=== PATIENT | male | born 1965 | race Caucasian/White ===

== ENCOUNTER 2017-05-12 15:47 | Inpatient (IN) ==
--- NOTE | 2017-05-12 15:56 | Emergency Department Note ---
Disposition Clinical Impression: Cellulitis Disposition: Admitted As Inpatient Condition: Good General Adult HPI - General Chief complaint: ED Extremity Problem,Nontraumatic Stated complaint: RUE cellulitis Time Seen by Provider: 05/12/17 15:49 - Related Data Home Medications Medication Instructions Recorded Confirmed Duloxetine [Cymbalta] 30 mg PO DAILY 06/20/15 05/12/17 Metoprolol [Lopressor] 50 mg PO BID 07/14/15 05/12/17 Atorvastatin [Lipitor] 10 mg PO HS 05/12/17 05/12/17 Lisinopril [Zestril] 40 mg PO DAILY 05/12/17 05/12/17 Mirtazapine [Remeron] 30 mg PO HS 05/12/17 05/12/17 Omeprazole [PriLOSEC] 20 mg PO DAILY PRN 05/12/17 05/12/17 Oxycodone HCl/Acetaminophen 1 each PO Q8H PRN 05/12/17 05/12/17 [Percocet 7.5-325 mg Tablet] Potassium Chloride [Klor-Con 10 meq PO DAILY 05/12/17 05/12/17 Sprinkle] Pregabalin [Lyrica] 200 mg PO TID 05/12/17 05/12/17 Allergies Allergy/AdvReac Type Severity Reaction Status Date / Time No Known Allergies Allergy Unverified 04/08/15 13:07 Past Medical History - Past Medical History Medical history: Reports: hypertension, other Surgical history: Reports: orthopedic, other (Right below-knee amputation) Psychiatric history: Reports: anxiety, depression - Social History Smoking Status: Current every day smoker Smokeless Tobacco Status: No Alcohol use: Reports: none Drug use: Reports: none Course Vital Signs Temperature 97.9 F 05/12/17 15:52 Pulse Rate 72 05/12/17 15:52 Respiratory Rate 16 05/12/17 15:52 Blood Pressure 167/112 05/12/17 15:52 O2 Sat by Pulse Oximetry 99 05/12/17 15:52 Temperature 97.8 F 05/13/17 11:35 Pulse Rate 88 05/13/17 11:35 Respiratory Rate 16 05/13/17 11:40 Blood Pressure 106/73 05/13/17 11:35 O2 Sat by Pulse Oximetry 95 05/13/17 11:40 Oxygen Delivery Oxygen Delivery Room Air Medical Decision Making - Lab Data Result diagrams: 05/13/17 05:00 05/13/17 05:00 Lab Results 05/12/17 05/12/17 Range/Units 16:21 16:21 WBC 10.1 (4.3-11.1) K/mcL RBC 5.12 (4.19-5.50) M/mcL Hgb 15.0 (12.9-16.9) g/dL Hct 44.9 (37.5-50.1) % MCV 87.7 (83.0-100.0) fL MCH 29.3 (28.0-33.3) pg MCHC 33.4 (31.6-35.5) g/dL RDW 15.4 H (11.5-14.5) % Plt Count 355 (140-400) K/mcL MPV 10.3 (9.4-12.4) fL Immature Gran % 0.6 (0-4) % Seg Neutrophils % 67.0 % Lymphocytes % 23.4 % Monocytes % 5.2 % Eosinophils % 3.6 % Basophils % 0.2 % Neutrophils # 6.8 (1.6-8.9) K/mcL Lymphocytes # 2.4 (0.6-4.6) K/mcL Monocytes # 0.5 (0.0-1.3) K/mcL Eosinophils # 0.4 (0.0-0.6) K/mcL Basophils # 0.0 (0.0-0.2) K/mcL Sodium 138 (136-145) mEq/L Potassium 4.1 (3.5-4.5) mEq/L Chloride 107 (98-109) mEq/L Carbon Dioxide 23 (19-29) mEq/L BUN 7 L (8-26) mg/dL Creatinine 0.89 (0.72-1.25) mg/dL Est GFR ( Amer) > 60 (> 60) Est GFR (Non-Af Amer) > 60 (> 60) BUN/Creatinine Ratio 8 (6-26) Glucose 89 (70-99) mg/dL Calculated Osmolality 283 (280-300) Calcium 8.8 (8.6-10.8) mg/dL Attestation Statement - Attestation Attestation: I examined this patient and my medical decision-making was reviewed with the Resident Physician. I agree with the documented findings, disposition and treatment plan as described except to the extent set forth below. [id number] time provided Patient arrives as a transfer from the [facility] due to right upper extremity swelling. He was being treated for cellulitis with vancomycin pre- transfer. His right upper extremity is swollen with some serous drainage but it is not hot, tender or crepitant.
--- NOTE | 2017-05-12 16:04 | Emergency Department Note ---
Disposition Clinical Impression: Cellulitis Qualifiers: Site of cellulitis: extremity Site of cellulitis of extremity: upper extremity Laterality: right Qualified Code(s): L03.113 - Cellulitis of right upper limb Disposition: Admitted As Inpatient Condition: Good General Adult HPI - General Chief complaint: ED Extremity Problem,Nontraumatic Stated complaint: RUE cellulitis Time Seen by Provider: 05/12/17 15:49 Source: patient Limitations: no limitations Nursing Notes Reviewed: Yes Vital Signs Reviewed: Yes - History of Present Illness HPI Narrative: 51-year-old male presenting to the emergency department from the OR urgent care for right upper extremity cellulitis. He states last night he started having right upper extremity swelling, redness, warmth. He states it is now from his hand on the way up to his right shoulder. Patient has a significant medical history previous staph infections. He states he was electrocuted in the past and needed to have a right lower extremity amputation. When this occurred he had a staph infection and needed to be revised. He has multiple skin infections in the past. He denies fevers at home. He denies nausea and vomiting. Patient states he otherwise feels fine at this time. He was concerned due to long-standing history of staph infections. Vancomycin was started at the outpatient urgent care. Patient denies IV drug use. Pain Scale: 4 - Related Data Home Medications Medication Instructions Recorded Confirmed Duloxetine [Cymbalta] 30 mg PO DAILY 06/20/15 05/12/17 Metoprolol [Lopressor] 50 mg PO BID 07/14/15 05/12/17 Atorvastatin [Lipitor] 10 mg PO HS 05/12/17 05/12/17 Lisinopril [Zestril] 40 mg PO DAILY 05/12/17 05/12/17 Mirtazapine [Remeron] 30 mg PO HS 05/12/17 05/12/17 Omeprazole [PriLOSEC] 20 mg PO DAILY PRN 05/12/17 05/12/17 Oxycodone HCl/Acetaminophen 1 each PO Q8H PRN 05/12/17 05/12/17 [Percocet 7.5-325 mg Tablet] Potassium Chloride [Klor-Con 10 meq PO DAILY 05/12/17 05/12/17 Sprinkle] Pregabalin [Lyrica] 200 mg PO TID 05/12/17 05/12/17 Allergies Allergy/AdvReac Type Severity Reaction Status Date / Time No Known Allergies Allergy Unverified 04/08/15 13:07 All systems ED: reviewed and negative except as stated. Constitutional: Denies: fever, chills Eyes: Reports: as per HPI ENT ED: Reports: as per HPI Cardiovascular: Denies: chest pain, palpitations Respiratory: Denies: cough, dyspnea, wheezes Gastrointestinal: Denies: abdominal pain, nausea, vomiting Genitourinary: Reports: as per HPI Musculoskeletal: Reports: as per HPI Integumentary: Reports: other (Redness and swelling to the right upper extremity ) Neurological: Reports: as per HPI Psychiatric: Reports: as per HPI Endocrine: Reports: as per HPI Hematological/Lymphatic: Reports: as per HPI Allergic/Immunologic: Reports: as per HPI Past Medical History - Past Medical History Attestation: Yes The following information was validated with the patient. Medical history: Reports: hypertension, other Surgical history: Reports: orthopedic, other (Right below-knee amputation) Psychiatric history: Reports: anxiety, depression - Social History Smoking Status: Current every day smoker Smokeless Tobacco Status: No Alcohol use: Reports: none Drug use: Reports: none Physical Exam - General Limitations: no limitations General appearance: alert, in no apparent distress - Head Head exam: atraumatic, normocephalic, normal inspection - Eye Eye exam: Present: normal appearance. Absent: scleral icterus, conjunctival injection - Chest Chest inspection: Present: normal inspection, symmetric chest wall rise. Absent : tenderness, rash - Respiratory Respiratory exam: Present: normal lung sounds bilaterally. Absent: respiratory distress, wheezes - Cardiovascular Cardiovascular exam: Present: regular rate, normal rhythm, normal heart sounds - Abdominal Exam Abdominal exam: Present: soft, Non-Tender. Absent: distention, guarding, rebound - Extremities Exam Extremities exam: Present: other (Right upper extremity swelling and redness noted. Some warmth noted on exam. Muscle strength 5 out of 5 bilateral upper extremities. Sensation intact bilateral upper extremities. Distal pulses 2+ bilateral upper extremities. No crepitus or dislocation noted on exam.) - Neurological Exam Neurological exam: Present: alert, oriented X3 - Psychiatric Psychiatric exam: Present: normal affect, normal mood - Skin Skin exam: Present: warm, intact Course Course Narrative: 51-year-old male presenting to the emergency department from the OR with chief complaint of right upper extremity cellulitis. Patient is restarted on IV vancomycin. Significant medical history from MRSA infections. No concern for systemic illness at this time due to patient being afebrile and nontoxic heart. We will obtain basic lab work and a CT of the right upper extremity. Disposition will be admission. Patient's alert and oriented 3 in the room with stable vital signs at this time. - Reevaluation(s) Reevaluation #1: Patient accepted by the hospitalist at this time. He is alert and oriented x3 in the room with stable vital signs Vital Signs Temperature 97.9 F 05/12/17 15:52 Pulse Rate 72 05/12/17 15:52 Respiratory Rate 16 05/12/17 15:52 Blood Pressure 167/112 05/12/17 15:52 O2 Sat by Pulse Oximetry 99 05/12/17 15:52 Temperature 97.6 F 05/13/17 07:30 Pulse Rate 87 05/13/17 07:30 Respiratory Rate 16 05/13/17 07:30 Blood Pressure 99/64 05/13/17 07:30 O2 Sat by Pulse Oximetry 91 05/13/17 07:30 Oxygen Delivery Oxygen Delivery Room Air Medical Decision Making - Lab Data Result diagrams: 05/13/17 05:00 05/13/17 05:00 Lab Results 05/12/17 05/12/17 Range/Units 16:21 16:21 WBC 10.1 (4.3-11.1) K/mcL RBC 5.12 (4.19-5.50) M/mcL Hgb 15.0 (12.9-16.9) g/dL Hct 44.9 (37.5-50.1) % MCV 87.7 (83.0-100.0) fL MCH 29.3 (28.0-33.3) pg MCHC 33.4 (31.6-35.5) g/dL RDW 15.4 H (11.5-14.5) % Plt Count 355 (140-400) K/mcL MPV 10.3 (9.4-12.4) fL Immature Gran % 0.6 (0-4) % Seg Neutrophils % 67.0 % Lymphocytes % 23.4 % Monocytes % 5.2 % Eosinophils % 3.6 % Basophils % 0.2 % Neutrophils # 6.8 (1.6-8.9) K/mcL Lymphocytes # 2.4 (0.6-4.6) K/mcL Monocytes # 0.5 (0.0-1.3) K/mcL Eosinophils # 0.4 (0.0-0.6) K/mcL Basophils # 0.0 (0.0-0.2) K/mcL Sodium 138 (136-145) mEq/L Potassium 4.1 (3.5-4.5) mEq/L Chloride 107 (98-109) mEq/L Carbon Dioxide 23 (19-29) mEq/L BUN 7 L (8-26) mg/dL Creatinine 0.89 (0.72-1.25) mg/dL Est GFR ( Amer) > 60 (> 60) Est GFR (Non-Af Amer) > 60 (> 60) BUN/Creatinine Ratio 8 (6-26) Glucose 89 (70-99) mg/dL Calculated Osmolality 283 (280-300) Calcium 8.8 (8.6-10.8) mg/dL
[2017-05-12 16:37] LABS: Basophils % 0.2 %; Eosinophils # 0.4 K/mcL (0.0-0.6); Eosinophils % 3.6 %; Hematocrit 44.9 % (37.5-50.1); Immature Granulocytes % 0.6 % (0-4); Lymphocytes # 2.4 K/mcL (0.6-4.6); Lymphocytes % 23.4 %; Mean Corpuscular HGB Conc 33.4 g/dL (31.6-35.5); Mean Corpuscular Hemoglobin 29.3 pg (28.0-33.3); Mean Corpuscular Volume 87.7 fL (83.0-100.0); Mean Platelet Volume 10.3 fL (9.4-12.4); Monocytes # 0.5 K/mcL (0.0-1.3); Monocytes % 5.2 %; Neutrophils # 6.8 K/mcL (1.6-8.9); Platelet Count 355 K/mcL (140-400); Red Blood Count 5.12 M/mcL (4.19-5.50); Red Cell Distribution Width 15.4 % (11.5-14.5)
[2017-05-12 16:49] LABS: BUN/Creatinine Ratio 8 (6-26); Blood Urea Nitrogen 7 mg/dL (8-26); Calcium 8.8 mg/dL (8.6-10.8); Carbon Dioxide 23 mEq/L (19-29); Chloride 107 mEq/L (98-109); Glucose 89 mg/dL (70-99); Osmolality,Calculated 283 (280-300); Potassium 4.1 mEq/L (3.5-4.5); Sodium 138 mEq/L (136-145); eGFR For African Americans > 60 (> 60); eGFR For Non-African Americans > 60 (> 60)
[2017-05-12] MEDS ORDERED: Ketorolac 15 MG/ML VIAL IVP ONE (19:01)
[2017-05-12] MEDS ORDERED: Naloxone 0.4 MG/ML INJ IVP PRN (21:22)
[2017-05-12] MEDS ORDERED: Ondansetron 4 MG/2 ML VIAL IVP PRN (21:22)
[2017-05-12] MEDS ORDERED: Acetaminophen 325 MG TABLET PO PRN (21:22)
--- NOTE | 2017-05-12 21:31 | Internal Med History&Physical ---
<Jodie Parr - Last Filed: 05/12/17 21:59> Date of Encounter: 05/12/17 Time of Encounter: 21:29 Assessment and Plan (1) Cellulitis Current visit: Yes Status: Acute 1 patient R arm red and swollen tender warm to touch. His history of MRSA. Blood cultures have been obtained we will obtain wound cultures patient started on vancomycin we will add Zosyn We will obtain venous Doppler to rule out DVT Elevate extremity Qualifiers: Site of cellulitis: extremity Site of cellulitis of extremity: upper extremity Laterality: right Qualified Code(s): L03.113 - Cellulitis of right upper limb (2) Hypertension Current visit: No Status: Chronic Presently controlled with continuous home medications Qualifiers: Hypertension type: essential hypertension Qualified Code(s): I10 - Essential (primary) hypertension (3) GERD (gastroesophageal reflux disease) Current visit: No Status: Chronic Continue with Prilosec Qualifiers: Esophagitis presence: esophagitis presence not specified Qualified Code(s) : K21.9 - Gastro-esophageal reflux disease without esophagitis (4) DVT prophylaxis Current visit: Yes Status: Acute Lovenox [facility] Internal Medicine - H&P: HPI Chief complaint: arm swelling Admitted From: Emergency Dept Plans for Post Hospital Care: Home History of present illness: Mr. Naqvi is a 51 year old male past medical history of hypertension COPD GERD hyperlipidemia BKA 2011 right leg injury from electrocution. Patient has been experiencing right upper extremity swelling redness and warmth which originates in his shoulder and extends down to his hand. The arm has become more swollen and red tender over the past 24 hours. Earlier today he developed blisters and his right antecubital area that are now weeping clear fluid. He states this happened the last time he had an MRSA infection. Blood cultures have been obtained and patient was started on vancomycin. He has a past history of MRSA infections He presented to the emergency department at the [place] within transferred into our ER for further evaluation. He has been admitted for further workup and evaluation. Presently he is hemodynamically stable I reviewed this case with Dr Vazquez Past Med Surg Social Fam HX - Past Medical History Medical history: hypertension, other Psychiatric history: anxiety, depression - Past Surgical History Surgical History: orthopedic, other (Right below-knee amputation) - Social History Smoking Status: Current every day smoker Smokeless Tobacco Status: No Alcohol use: none Drug use: none - Family History Father Hx Family Cardiac Disorders: Yes (HTN) Mother Living Status: Hx Family Cardiac Disorders: Yes (heart disease ) Hx Family Endocrine Disorder: Yes (DM) Internal Medicine - H&P: Meds Duloxetine [Cymbalta] 30 mg PO DAILY 06/20/15 [History] Metoprolol [Lopressor] 50 mg PO BID 07/14/15 [History] Atorvastatin [Lipitor] 10 mg PO HS 05/12/17 [History] Lisinopril [Zestril] 40 mg PO DAILY 05/12/17 [History] Mirtazapine [Remeron] 30 mg PO HS 05/12/17 [History] Omeprazole [PriLOSEC] 20 mg PO DAILY PRN 05/12/17 [History] Oxycodone HCl/Acetaminophen [Percocet 7.5-325 mg Tablet] 1 each PO Q8H PRN 05/12 [History] Potassium Chloride [Klor-Con Sprinkle] 10 meq PO DAILY 05/12/17 [History] Pregabalin [Lyrica] 200 mg PO TID 05/12/17 [History] 3 Allergy/AdvReac Type Severity Reaction Status Date / Time No Known Allergies Allergy Unverified 04/08/15 13:07 All Systems PM: A 10-system review of systems was performed and is negative for pertinent findings except as documented above in the HPI. - Constitutional Constitutional: no chills, no fever(s), no night sweats - EENT Eyes: no change in vision, no discharge, no pain, no photophobia Nose, mouth and throat: no dysphagia, no nasal discharge, no neck pain, no sore throat - Cardiovascular Cardiovascular ROS IM: no chest pain, no diaphoresis, no dyspnea, no lightheadedness, no palpitations, no syncope - Respiratory Respiratory: no cough, no dyspnea, no wheezing, no excessive phlegm production - Gastrointestinal Gastrointestinal: no abdominal pain, no diarrhea, no hematemesis, no hematochezia, no melena, no nausea, no vomiting - Musculoskeletal Musculoskeletal ROS IM: no numbness, no tingling - Integumentary Integumentary IM: erythema, new lesions, no unusual bruising - Neurological Neurological ROS: no confusion, no convulsions, no focal weakness, no numbness, no tingling, no tremor(s) - Hematologic/Lymphatic Hematologic/Lymphatic: no easy bruising - Constitutional Vitals: Temp Pulse Resp BP Pulse Ox 97.9 F 73 18 136/92 93 05/12/17 15:52 05/12/17 20:57 05/12/17 21:12 05/12/17 21:12 05/12/17 20:57 General appearance: Present: A&O X 3 - Head Head exam: Present: atraumatic, normocephalic - Eye Eye exam: Present: PERRL, conjuntiva pink, sclera anicteric Pupils: Present: PERRL - Neck Neck exam general surgery: Present: supple, trachea midline. Absent: lymphadenopathy - Respiratory Respiratory exam: Present: wheezes - Cardiovascular Cardiovascular exam: Present: RRR, +S1, +S2. Absent: diastolic murmur, gallop, rubs, systolic murmur - GI/Abdominal GI/Abdominal exam: Present: normal bowel sounds, soft, no peritoneal signs. Absent: distended, tenderness - Extremities Exam Extremities exam: Present: warm, radial pulses palpable and symmetrical. Absent : calf tenderness, cyanotic, pedal edema - Expanded Upper Extremities Exam Upper Arm exam: Present: erythema, swelling, tenderness Elbow exam: Present: erythema, swelling, tenderness Forearm wrist exam: Present: erythema, swelling, tenderness - Neurological Exam Neurological exam: Present: CN II-XII intact, oriented X3, no focal deficits. Absent: pronater drift, facial droop, speech deficit - Skin Skin exam: Present: dry, intact Internal Med - H&P Results - Labs CBC & Chem 7: 05/12/17 16:21 05/12/17 16:21 - Diagnostic Studies Other Images Additional comments: Upper Extremity CT 05/12/17 15:59 IMPRESSION: Diffuse subcutaneous soft tissue edema of the dorsum of the right upper extremity, most pronounced at the level of the elbow, consistent with a severe cellulitis in the appropriate clinical setting of infection. There is no abscess. No evidence of osteomyelitis. Emphysematous changes of the lungs, suboptimally evaluated on this nondedicated study. D/ / 05/12/2017 18:07:41 Gage Johnson MD / demarcus Interpreting Provider: Gage Alex, Vernon Josue - Last Filed: 05/12/17 23:47> Date of Encounter: 05/12/17 Internal Medicine - H&P: HPI History of present illness: Mr. Naqvi is a 51 year old male All Systems PM: A 10-system review of systems was performed and is negative for pertinent findings except as documented above in the HPI. - Constitutional Vitals: Temp Pulse Resp BP Pulse Ox 98.4 F 82 19 137/96 94 05/12/17 22:25 05/12/17 22:25 05/12/17 22:35 05/12/17 22:25 05/12/17 22:35 Internal Med - H&P Results - Labs CBC & Chem 7: 05/12/17 16:21 05/12/17 16:21 - Attending Attestation I examined this patient and my medical decision-making was reviewed with the RESEARCH CHEMICAL ENGINEER. I agree with the documented findings, disposition and treatment plan as described except to the extent set forth below. Patient is a 51-year-old male with past medical history of hypertension, GERD, COPD and hyperlipidemia. He presents to the ED with complaints of right arm swelling. He also complains of right arm redness and warmth. States it initially started in the shoulder and extends all the way down to his arm. States this happened in the past and he had an MRSA infection. He states he has had multiple infections of his arms and legs in the past. Initial workup in the ED including CT of the upper extremity shows diffuse subcutaneous soft tissue edema of the dorsum of the right upper extremity consistent with severe cellulitis. No evidence of osteomyelitis. All other labs seem to be within normal limits. Patient will be on IV Zosyn and IV vancomycin. Ultrasound upper extremity Doppler is pending. Patient also has COPD with bilateral wheezing. He will be on DuoNeb breathing treatment. Patient has been explained about his condition and plan of care in detail. He understood and agreed. No unanswered questions. CODE STATUS full code. Heart rate 82, blood pressure 137/96, O2 sat 94% on room air. Heart S1-S2 positive. No murmurs or rubs. Lungs bilateral good air entry bilateral wheezing. Extremities extensive swelling over the right upper extremity extending from the shoulder all the way to the hand with mild tenderness. There is edema diffusely with erythema, no evidence of compartment syndrome at this time.
[2017-05-12] MEDS ORDERED: Albuterol 2.5 MG/3 ML NEBULIZER IH PRN (22:21)
[2017-05-12] MEDS: *HR* OxyCODONE/APAP 7.5/325 TABLET PO PRN (22:22)
[2017-05-12] MEDS: Ipratropium/Albuterol Neb 3 ML IH SCH (22:35)
[2017-05-12] MEDS ORDERED: Vancomycin 1,250 MG in D5% in Water 250 ML IVPB SCH (23:00)
[2017-05-12] MEDS: Nicotine 21 MG PATCH.TD24 TD SCH (23:06)
[2017-05-13] MEDS: Piperacillin/Tazobactam 3.375 GM in D5% in Water (Mini-Bag+) 100 ML IVPB SCH ×3 (00:05→15:44)
[2017-05-13] MEDS: Mirtazapine 15 MG TABLET PO SCH ×2 (03:00→20:29)
[2017-05-13] MEDS: Ipratropium/Albuterol Neb 3 ML IH SCH ×4 (04:04→23:08)
[2017-05-13 05:24] LABS: Basophils % 0.1 %; Eosinophils # 0.1 K/mcL (0.0-0.6); Eosinophils % 1.4 %; Hemoglobin 14.7 g/dL (12.9-16.9); Immature Granulocytes % 0.3 % (0-4); Lymphocytes # 2.1 K/mcL (0.6-4.6); Lymphocytes % 22.3 %; Mean Corpuscular HGB Conc 33.4 g/dL (31.6-35.5); Mean Corpuscular Hemoglobin 29.2 pg (28.0-33.3); Mean Corpuscular Volume 87.5 fL (83.0-100.0); Mean Platelet Volume 10.9 fL (9.4-12.4); Monocytes # 0.5 K/mcL (0.0-1.3); Monocytes % 4.8 %; Neutrophils # 6.6 K/mcL (1.6-8.9); Platelet Count 307 K/mcL (140-400); Red Blood Count 5.03 M/mcL (4.19-5.50); Red Cell Distribution Width 15.6 % (11.5-14.5); Segmented Neutrophils % 71.1 %
[2017-05-13 05:38] LABS: BUN/Creatinine Ratio 9 (6-26); Blood Urea Nitrogen 9 mg/dL (8-26); Calcium 8.5 mg/dL (8.6-10.8); Carbon Dioxide 22 mEq/L (19-29); Chloride 106 mEq/L (98-109); Glucose 121 mg/dL (70-99); Osmolality,Calculated 286 (280-300); Sodium 138 mEq/L (136-145); eGFR For African Americans > 60 (> 60); eGFR For Non-African Americans > 60 (> 60)
[2017-05-13 05:39] LABS: Potassium 4.4 mEq/L (3.5-4.5)
[2017-05-13] MEDS: *HR* Enoxaparin 40 MG/0.4 ML SYRINGE SQ SCH (06:42)
[2017-05-13] MEDS: Nicotine 21 MG PATCH.TD24 TD SCH (10:00)
[2017-05-13] MEDS: Lisinopril 20 MG TABLET PO SCH (10:00)
[2017-05-13] MEDS: Pregabalin 50 MG CAPSULE PO SCH ×3 (10:00→20:29)
[2017-05-13] MEDS: Vancomycin 1,000 MG in D5% in Water 250 ML IVPB SCH ×2 (11:59→22:54)
--- NOTE | 2017-05-13 19:28 | Internal Med Progress Note ---
Date of Encounter: 05/13/17 Time of Encounter: 11:00 - Assessment and plan (1) Cellulitis Current Visit: Yes Status: Acute Assessment and plan: -Cellulitis has improved on IV vancomycin/Zosyn -Continue current management Qualifiers: Site of cellulitis: extremity Site of cellulitis of extremity: upper extremity Laterality: right Qualified Code(s): L03.113 - Cellulitis of right upper limb (2) Hypertension Current Visit: No Status: Chronic Qualifiers: Hypertension type: essential hypertension Qualified Code(s): I10 - Essential (primary) hypertension - Subjective Interval history: He reports that cellulitis of right arm has improved. - Constitutional Vitals: Temp Pulse Resp BP Pulse Ox 97.8 F 88 16 106/73 95 05/13/17 11:35 05/13/17 11:35 05/13/17 11:40 05/13/17 11:35 05/13/17 11:40 General appearance: Present: A&O X 3 - Respiratory Respiratory exam: Present: CTAB. Absent: accessory muscle use, rales, rhonchi, wheezes - Cardiovascular Cardiovascular exam: Present: RRR, +S1, +S2. Absent: diastolic murmur, gallop, rubs, systolic murmur Internal Medicine: Result - Labs CBC & Chem 7: 05/13/17 05:00 05/13/17 05:00 Labs: Short CBC 05/13/17 Range/Units 05:00 WBC 9.3 (4.3-11.1) K/mcL Hgb 14.7 (12.9-16.9) g/dL Hct 44.0 (37.5-50.1) % Plt Count 307 (140-400) K/mcL Neutrophils # 6.6 (1.6-8.9) K/mcL BMP 05/13/17 05:00 Sodium 138 Potassium 4.4 Chloride 106 Carbon Dioxide 22 BUN 9 Creatinine 1.00 Glucose 121 H Calcium 8.5 L Consult Discharge Plan - Plan Referrals: Hugo Juan MD [Primary Care Provider] -
[2017-05-13] MEDS ORDERED: Vancomycin 1,000 MG in D5% in Water 250 ML IVPB SCH (22:00)
[2017-05-14] MEDS: Piperacillin/Tazobactam 3.375 GM in D5% in Water (Mini-Bag+) 100 ML IVPB SCH ×2 (00:10→08:30)
[2017-05-14] MEDS: Ipratropium/Albuterol Neb 3 ML IH SCH ×4 (05:23→22:28)
[2017-05-14] MEDS: Pregabalin 50 MG CAPSULE PO SCH ×3 (08:27→21:44)
[2017-05-14] MEDS: *HR* Enoxaparin 40 MG/0.4 ML SYRINGE SQ SCH (08:27)
[2017-05-14] MEDS: Nicotine 21 MG PATCH.TD24 TD SCH (08:28)
[2017-05-14] MEDS: Lisinopril 20 MG TABLET PO SCH (08:29)
[2017-05-14] MEDS: Vancomycin 1,000 MG in D5% in Water 250 ML IVPB SCH ×2 (10:24→23:07)
[2017-05-14] MEDS: *HR* OxyCODONE/APAP 7.5/325 TABLET PO PRN (10:25)
[2017-05-14 10:46] LABS: Basophils % 0.2 %; Eosinophils # 0.3 K/mcL (0.0-0.6); Eosinophils % 3.2 %; Hematocrit 41.8 % (37.5-50.1); Immature Granulocytes % 0.7 % (0-4); Lymphocytes % 20.2 %; Mean Corpuscular HGB Conc 33.5 g/dL (31.6-35.5); Mean Corpuscular Hemoglobin 29.7 pg (28.0-33.3); Mean Corpuscular Volume 88.6 fL (83.0-100.0); Monocytes # 0.5 K/mcL (0.0-1.3); Monocytes % 5.2 %; Neutrophils # 7.1 K/mcL (1.6-8.9); Platelet Count 304 K/mcL (140-400); Red Blood Count 4.72 M/mcL (4.19-5.50); Red Cell Distribution Width 15.8 % (11.5-14.5); Segmented Neutrophils % 70.5 %
[2017-05-14 10:56] LABS: BUN/Creatinine Ratio 13 (6-26); Blood Urea Nitrogen 12 mg/dL (8-26); Calcium 8.8 mg/dL (8.6-10.8); Carbon Dioxide 22 mEq/L (19-29); Chloride 110 mEq/L (98-109); Glucose 120 mg/dL (70-99); Osmolality,Calculated 293 (280-300); Potassium 4.7 mEq/L (3.5-4.5); Sodium 141 mEq/L (136-145); eGFR For African Americans > 60 (> 60); eGFR For Non-African Americans > 60 (> 60)
[2017-05-14] MEDS ORDERED: Aminoglycoside Consult 1 EACH MC ONE (11:49)
--- NOTE | 2017-05-14 14:13 | Internal Med Progress Note ---
Date of Encounter: 05/14/17 Time of Encounter: 13:00 - Assessment and plan (1) Cellulitis Current Visit: Yes Status: Acute Assessment and plan: -Cellulitis has improved on IV vancomycin/Zosyn -Wound cultures were negative -Will de-escalate to more additional day vancomycin and discharged on doxycycline Qualifiers: Site of cellulitis: extremity Site of cellulitis of extremity: upper extremity Laterality: right Qualified Code(s): L03.113 - Cellulitis of right upper limb (2) Hypertension Current Visit: No Status: Chronic Assessment and plan: -Controlled; continue home medications. Qualifiers: Hypertension type: essential hypertension Qualified Code(s): I10 - Essential (primary) hypertension (3) Hyperlipemia Current Visit: Yes Status: Acute Assessment and plan: -Continue statin. Qualifiers: Hyperlipidemia type: unspecified Qualified Code(s): E78.5 - Hyperlipidemia , unspecified - Subjective Interval history: Cellulitis and edema continues to improve. - Constitutional Vitals: Temp Pulse Resp BP Pulse Ox 98.9 F 78 14 103/63 96 05/14/17 12:40 05/14/17 12:40 05/14/17 12:40 05/14/17 12:40 05/14/17 12:40 General appearance: Present: no acute distress - Respiratory Respiratory exam: Present: CTAB. Absent: accessory muscle use, rales, rhonchi, wheezes - Cardiovascular Cardiovascular exam: Present: RRR, +S1, +S2. Absent: diastolic murmur, gallop, rubs, systolic murmur - Extremities Exam Extremities exam: Present: cyanotic, pedal edema, warm, radial pulses palpable and symmetrical - Expanded Upper Extremities Exam Forearm wrist exam: Present: erythema (Decreased erythema and edema of right forearm) Internal Medicine: Result - Labs CBC & Chem 7: 05/14/17 10:26 05/14/17 10:26 Labs: Short CBC 05/14/17 Range/Units 10: WBC 10.1 (4.3-11.1) K/mcL Hgb 14.0 (12.9-16.9) g/dL Hct 41.8 (37.5-50.1) % Plt Count 304 (140-400) K/mcL Neutrophils # 7.1 (1.6-8.9) K/mcL BMP 05/14/17 10:26 Sodium 141 Potassium 4.7 H Chloride 110 H Carbon Dioxide 22 BUN 12 Creatinine 0.96 Glucose 120 H Calcium 8.8 Consult Discharge Plan - Plan Referrals: Hugo Juan MD [Primary Care Provider] -
[2017-05-14] MEDS: Mirtazapine 15 MG TABLET PO SCH (21:46)
[2017-05-15] MEDS: Ipratropium/Albuterol Neb 3 ML IH SCH ×2 (03:45→10:33)
[2017-05-15] MEDS: *HR* Enoxaparin 40 MG/0.4 ML SYRINGE SQ SCH (06:13)
[2017-05-15] MEDS: Lisinopril 20 MG TABLET PO SCH (08:24)
[2017-05-15] MEDS: Pregabalin 50 MG CAPSULE PO SCH (08:30)
[2017-05-15] MEDS: Nicotine 21 MG PATCH.TD24 TD SCH (08:30)
[2017-05-15 10:53] VITALS: BP 107/67
--- NOTE | 2017-05-15 16:57 | Discharge Summary ---
Date of Encounter: 05/15/17 Time of Encounter: 00:00 - Discharge Diagnosis (1) Cellulitis Priority: Primary Status: Acute Qualifiers: Site of cellulitis: extremity Site of cellulitis of extremity: upper extremity Laterality: right Qualified Code(s): L03.113 - Cellulitis of right upper limb (2) Hypertension Priority: Secondary Status: Chronic Qualifiers: Hypertension type: essential hypertension Qualified Code(s): I10 - Essential (primary) hypertension (3) Hyperlipemia Priority: Secondary Status: Acute Qualifiers: Hyperlipidemia type: unspecified Qualified Code(s): E78.5 - Hyperlipidemia , unspecified - Discharge Medications Home Medications: Duloxetine [Cymbalta] 30 mg PO DAILY 06/20/15 [History] Metoprolol [Lopressor] 50 mg PO BID 07/14/15 [History] Atorvastatin [Lipitor] 10 mg PO HS 05/12/17 [History] Lisinopril [Zestril] 40 mg PO DAILY 05/12/17 [History] Mirtazapine [Remeron] 30 mg PO HS 05/12/17 [History] Omeprazole [PriLOSEC] 20 mg PO DAILY PRN 05/12/17 [History] Oxycodone HCl/Acetaminophen [Percocet 7.5-325 mg Tablet] 1 each PO Q8H PRN 05/12 [History] Potassium Chloride [Klor-Con Sprinkle] 10 meq PO DAILY 05/12/17 [History] Pregabalin [Lyrica] 200 mg PO TID 05/12/17 [History] Allergies/Adverse Reactions: 3 Allergy/AdvReac Type Severity Reaction Status Date / Time No Known Allergies Allergy Unverified 04/08/15 13:07 Date of admission: 05/12/17 22:07 Primary care physician: Hugo Juan MD - Patient Status Disposition: Left Against Medical Advice Condition: Good - Discharge Instructions Follow Up With: Hugo Juan MD [Primary Care Provider] - Hospital course: Patient left AGAINST MEDICAL ADVICE. Notified by nursing staff that patient was upset because he was transferred from one floor to the next knowing that he would be discharged on today. Apparently patient left the hospital without anybody knowing after being transferred to a different floor. - Time Spent with Patient Total time spent providing and/or coordinating discharge services: - Constitutional Vitals: Temp Pulse Resp BP Pulse Ox 97.5 F L 63 15 107/67 94 05/15/17 10:46 05/15/17 10:46 05/15/17 10:46 05/15/17 10:46 05/15/17 10:46 General appearance: Present: no acute distress
== END 2017-05-15 11:50 | disposition left against medical advice (07) | DRG 603 ==
LOC: EMEROO 15:47 → 3NENU 15:47 → SUATTDRO 22:07 → 3ANU 05-15 10:41
PROVIDERS: ADMIT Family Medicine; ATTEND Hospitalist

== ENCOUNTER 2021-03-29 20:55 | Inpatient (IN) ==
[2021-03-29 22:16] LABS: Basophils % 0.7 %; Eosinophils # 0.2 K/mcL (0.0-0.6); Eosinophils % 2.8 %; Hematocrit 46.6 % (37.5-50.1); Hemoglobin 16.3 g/dL (12.9-16.9); Immature Granulocytes % 0.3 % (0-4); Lymphocytes # 2.5 K/mcL (0.6-4.6); Lymphocytes % 42.4 %; Mean Corpuscular Hemoglobin 33.4 pg (28.0-33.3); Mean Corpuscular Volume 95.5 fL (83.0-100.0); Mean Platelet Volume 9.4 fL (9.4-12.4); Monocytes # 0.4 K/mcL (0.0-1.3); Monocytes % 7.2 %; Neutrophils # 2.7 K/mcL (1.6-8.9); Platelet Count 217 K/mcL (140-400); Red Blood Count 4.88 M/mcL (4.19-5.50); Red Cell Distribution Width 12.1 % (11.5-14.5); Segmented Neutrophils % 46.6 %; White Blood Count 5.8 K/mcL (4.3-11.1)
[2021-03-29] MEDS ORDERED: Ondansetron 4 MG/2 ML VIAL IVP ONE (22:18)
[2021-03-29 22:47] LABS: BUN/Creatinine Ratio 6 (6-26); Blood Urea Nitrogen 5 mg/dL (6-20); Calcium 9.1 mg/dL (8.6-10.3); Carbon Dioxide 25 mEq/L (23-29); Chloride 102 mEq/L (98-107); Glucose 81 mg/dL (70-105); Osmolality,Calculated 282 (280-300); Sodium 138 mEq/L (136-145); eGFR For African Americans > 60 (> 60); eGFR For Non-African Americans > 60 (> 60)
[2021-03-29 23:05] LABS: Ethanol 265 mg/dL (Less than 10)
[2021-03-30] MEDS ORDERED: Naloxone 0.4 MG/ML INJ IVP PRN (00:55)
[2021-03-30] MEDS ORDERED: Ondansetron 4 MG/2 ML VIAL IVP PRN (00:55)
[2021-03-30] MEDS ORDERED: *HR* LORazepam 2 MG/ML VIAL IVP PRN ×2 (01:09)
[2021-03-30] MEDS: *HR* LORazepam 2 MG/ML VIAL IVP PRN ×4 (02:03→17:33)
[2021-03-30 11:50] LABS: Hematocrit 41.8 % (37.5-50.1); Mean Corpuscular HGB Conc 34.7 g/dL (31.6-35.5); Mean Corpuscular Hemoglobin 33.8 pg (28.0-33.3); Mean Corpuscular Volume 97.4 fL (83.0-100.0); Mean Platelet Volume 9.6 fL (9.4-12.4); Platelet Count 194 K/mcL (140-400); Red Blood Count 4.29 M/mcL (4.19-5.50); Red Cell Distribution Width 12.2 % (11.5-14.5); White Blood Count 6.7 K/mcL (4.3-11.1)
[2021-03-30 11:52] LABS: BUN/Creatinine Ratio 13 (6-26); Blood Urea Nitrogen 11 mg/dL (6-20); Calcium 8.9 mg/dL (8.6-10.3); Carbon Dioxide 24 mEq/L (23-29); Chloride 104 mEq/L (98-107); Glucose 75 mg/dL (70-105); Magnesium 1.9 mg/dL (1.6-2.6); Osmolality,Calculated 286 (280-300); Phosphorous 3.6 mg/dL (2.7-4.5); Potassium 3.8 mEq/L (3.5-5.1); Sodium 139 mEq/L (136-145); eGFR For African Americans > 60 (> 60); eGFR For Non-African Americans > 60 (> 60)
[2021-03-30 11:57] LABS: Hemoglobin 14.5 g/dL (12.9-16.9)
[2021-03-30] MEDS: Nicotine 21 MG PATCH.TD24 TD SCH (12:34)
[2021-03-30 14:03] LABS: Adenovirus Not Detected (Not Detect); Bordetella Pertussis Not Detected (Not Detect); Chlamydophila pneumoniae Not Detected (Not Detect); Coronavirus 229E Not Detected (Not Detect); Coronavirus HKU1 Not Detected (Not Detect); Coronavirus NL63 Not Detected (Not Detect); Coronavirus OC43 Not Detected (Not Detect); Human Metapneumovirus Not Detected (Not Detect); Human Rhinovirus/Enterovirus Not Detected (Not Detect); Influenza A Subtype 2009 H1 Not Detected (Not Detect); Influenza B Not Detected (Not Detect); Mycoplasma pneumoniae Not Detected (Not Detect); Parainfluenza Virus 1 Not Detected (Not Detect); Parainfluenza Virus 2 Not Detected (Not Detect); Parainfluenza Virus 3 Not Detected (Not Detect); Parainfluenza Virus 4 Not Detected (Not Detect); Respiratory Syncytial Virus Not Detected (Not Detect); SARS-CoV-2 Not Detected (Not Detect)
[2021-03-30] MEDS ORDERED: Nitroglycerin 0.4 MG TAB.SUBL SL PRN (16:15)
[2021-03-30] MEDS: Thiamine (B-1) 100 MG, Folic Acid 1 MG, MVI, adult with vitamin K 10 ML in 0.9 % Sodi... IVPB SCH (18:25)
[2021-03-30] MEDS: traZODone 50 MG TABLET PO SCH (20:08)
[2021-03-31 07:58] LABS: Hematocrit 45.8 % (37.5-50.1); Hemoglobin 15.4 g/dL (12.9-16.9); Mean Corpuscular HGB Conc 33.6 g/dL (31.6-35.5); Mean Corpuscular Hemoglobin 32.9 pg (28.0-33.3); Mean Corpuscular Volume 97.9 fL (83.0-100.0); Mean Platelet Volume 9.4 fL (9.4-12.4); Platelet Count 196 K/mcL (140-400); Red Blood Count 4.68 M/mcL (4.19-5.50); Red Cell Distribution Width 12.2 % (11.5-14.5); White Blood Count 6.2 K/mcL (4.3-11.1)
[2021-03-31 08:16] LABS: Alanine Aminotransferase 46 Units/L (7-52); Albumin 3.9 g/dL (3.5-5.7); Albumin/Globulin Ratio 2.4 (1.1-2.2); Alkaline Phosphatase 94 Units/L (34-104); Aspartate Amino Transferase 37 Units/L (13-39); BUN/Creatinine Ratio 12 (6-26); Bilirubin,Total 0.8 mg/dL (0.3-1.0); Blood Urea Nitrogen 11 mg/dL (6-20); Calcium 9.4 mg/dL (8.6-10.3); Carbon Dioxide 30 mEq/L (23-29); Chloride 104 mEq/L (98-107); Globulin 1.6 g/dL (2.4-3.5); Glucose 102 mg/dL (70-105); Osmolality,Calculated 288 (280-300); Sodium 139 mEq/L (136-145); Total Protein 5.5 g/dL (6.4-8.9); eGFR For African Americans > 60 (> 60); eGFR For Non-African Americans > 60 (> 60)
[2021-03-31] MEDS: Nicotine 21 MG PATCH.TD24 TD SCH (09:59)
[2021-03-31] MEDS: lisinopriL 5 MG TABLET PO SCH (09:59)
[2021-03-31] MEDS: Aspirin Enteric Coated 81 MG Tablet PO SCH (10:00)
[2021-03-31] MEDS: *HR* LORazepam 2 MG/ML VIAL IVP PRN ×2 (12:33→20:04)
[2021-03-31] MEDS: Thiamine (B-1) 100 MG, Folic Acid 1 MG, MVI, adult with vitamin K 10 ML in 0.9 % Sodi... IVPB SCH (18:16)
[2021-03-31] MEDS ORDERED: Acetaminophen 325 MG TABLET PO PRN (19:58)
[2021-03-31] MEDS ORDERED: Ketorolac 30 MG/ML VIAL IVP ONE (19:58)
[2021-03-31] MEDS: traZODone 50 MG TABLET PO SCH (20:03)
[2021-04-01 04:42] LABS: BUN/Creatinine Ratio 15 (6-26); Blood Urea Nitrogen 11 mg/dL (6-20); Calcium 8.7 mg/dL (8.6-10.3); Carbon Dioxide 26 mEq/L (23-29); Chloride 104 mEq/L (98-107); Glucose 91 mg/dL (70-105); Magnesium 1.6 mg/dL (1.6-2.6); Osmolality,Calculated 281 (280-300); Potassium 3.9 mEq/L (3.5-5.1); Sodium 136 mEq/L (136-145); eGFR For African Americans > 60 (> 60); eGFR For Non-African Americans > 60 (> 60)
[2021-04-01] MEDS: Nicotine 21 MG PATCH.TD24 TD SCH (09:40)
[2021-04-01] MEDS: Aspirin Enteric Coated 81 MG Tablet PO SCH (09:40)
[2021-04-01] MEDS: Magnesium Oxide 400 MG TABLET PO SCH (09:40)
[2021-04-01] MEDS: lisinopriL 5 MG TABLET PO SCH (09:40)
[2021-04-01] MEDS: Thiamine (B-1) 100 MG, Folic Acid 1 MG, MVI, adult with vitamin K 10 ML in 0.9 % Sodi... IVPB SCH (10:20)
[2021-04-01] MEDS ORDERED: Acetaminophen 325 MG TABLET PO PRN (16:33)
[2021-04-01] MEDS: Nicotine 2 MG GUM BC PRN (16:47)
[2021-04-01] MEDS: Ketorolac 15 MG/ML VIAL IVP PRN (16:47)
[2021-04-01] MEDS: *HR* LORazepam 2 MG/ML VIAL IVP PRN (17:51)
[2021-04-01] MEDS: traZODone 50 MG TABLET PO SCH (21:15)
[2021-04-01] MEDS: Melatonin 3 MG TABLET PO SCH (21:15)
[2021-04-02] MEDS: Ketorolac 15 MG/ML VIAL IVP PRN ×3 (00:10→21:47)
[2021-04-02] MEDS: Folic Acid 1 MG TABLET PO SCH (09:19)
[2021-04-02] MEDS: Multivit/Ca/Min/Fe/FA 1 TAB TABLET PO SCH (09:19)
[2021-04-02] MEDS: Thiamine (B-1) 100 MG TABLET PO SCH (09:20)
[2021-04-02] MEDS: Aspirin Enteric Coated 81 MG Tablet PO SCH (09:20)
[2021-04-02] MEDS: Magnesium Oxide 400 MG TABLET PO SCH (09:20)
[2021-04-02] MEDS: Nicotine 21 MG PATCH.TD24 TD SCH (09:21)
[2021-04-02] MEDS: lisinopriL 5 MG TABLET PO SCH (09:26)
[2021-04-02] MEDS: Thiamine (B-1) 100 MG, Folic Acid 1 MG, MVI, adult with vitamin K 10 ML in 0.9 % Sodi... IVPB SCH (10:26)
[2021-04-02] MEDS: Nicotine 2 MG GUM BC PRN (10:27)
[2021-04-02] MEDS: traZODone 50 MG TABLET PO SCH (21:48)
[2021-04-02] MEDS: Melatonin 3 MG TABLET PO SCH (21:48)
[2021-04-03 07:36] VITALS: BP 101/64; PULSE 77; O2SAT 94
[2021-04-03] MEDS: Nicotine 21 MG PATCH.TD24 TD SCH (09:12)
[2021-04-03] MEDS: Multivit/Ca/Min/Fe/FA 1 TAB TABLET PO SCH (09:14)
[2021-04-03] MEDS: Thiamine (B-1) 100 MG TABLET PO SCH (09:15)
[2021-04-03] MEDS: Folic Acid 1 MG TABLET PO SCH (09:15)
[2021-04-03] MEDS: lisinopriL 5 MG TABLET PO SCH (09:16)
[2021-04-03] MEDS: Aspirin Enteric Coated 81 MG Tablet PO SCH (09:18)
[2021-04-03] MEDS: Magnesium Oxide 400 MG TABLET PO SCH (09:18)
[2021-04-03] MEDS: Ketorolac 15 MG/ML VIAL IVP PRN (09:19)
[2021-04-03 12:21] VITALS: TEMP 98.1
== END 2021-04-03 14:57 | DRG 897 ==
LOC: 3ANU 20:55 → EMEROOARM 20:55 → SUATTDRO 03-30 00:50 → 3ANU 03-30 01:26 → SUATTDRO 03-31 15:22
PROVIDERS: ADMIT Internal Medicine; ATTEND Internal Medicine

== ENCOUNTER 2022-03-14 23:43 | Inpatient (IN) ==
[2022-03-15] MEDS ORDERED: *HR* OxyCODONE Immed Rel 5 MG TABLET PO ONE (00:38)
[2022-03-15 02:07] LABS: Basophils % 0.5 %; Eosinophils # 0.1 K/mcL (0.0-0.6); Eosinophils % 1.6 %; Hematocrit 43.1 % (37.5-50.1); Hemoglobin 14.9 g/dL (12.9-16.9); Immature Granulocytes % 0.3 % (0-4); Lymphocytes # 1.8 K/mcL (0.6-4.6); Lymphocytes % 28.7 %; Mean Corpuscular HGB Conc 34.6 g/dL (31.6-35.5); Mean Corpuscular Hemoglobin 31.4 pg (28.0-33.3); Mean Corpuscular Volume 90.9 fL (83.0-100.0); Mean Platelet Volume 9.6 fL (9.4-12.4); Monocytes # 0.5 K/mcL (0.0-1.3); Monocytes % 7.9 %; Neutrophils # 3.9 K/mcL (1.6-8.9); Platelet Count 285 K/mcL (140-400); Red Blood Count 4.74 M/mcL (4.19-5.50); Red Cell Distribution Width 13.8 % (11.5-14.5); White Blood Count 6.3 K/mcL (4.3-11.1)
[2022-03-15 02:28] LABS: BUN/Creatinine Ratio 9 (6-26); Blood Urea Nitrogen 7 mg/dL (6-20); Calcium 7.9 mg/dL (8.6-10.3); Carbon Dioxide 28 mEq/L (23-29); Chloride 108 mEq/L (98-107); Glucose 103 mg/dL (70-105); Osmolality,Calculated 296 (280-300); Potassium 3.4 mEq/L (3.5-5.1); Sodium 144 mEq/L (136-145)
[2022-03-15] MEDS ORDERED: Morphine Sulfate 2 MG/ML SYRINGE IVP ONE (03:01)
[2022-03-15] MEDS ORDERED: *HR* LORazepam 2 MG/ML VIAL IVP PRN ×2 (04:25)
[2022-03-15] MEDS ORDERED: Calcium Gluconate 1gm/50mL 1 GM/50 ML BAG IVPB ONE (04:28)
[2022-03-15] MEDS ORDERED: Potassium Chloride Elixir 20 MEQ/15 ML UDC PO ONE (04:28)
[2022-03-15 04:36] LABS: Ethanol 294 mg/dL (Less than 10)
[2022-03-15 04:45] LABS: Amylase 58 Units/L (29-103); Lipase 40 Units/L (11-82)
[2022-03-15] MEDS ORDERED: Iopamidol - 370 500 ML MLS IVP ONE (05:04)
[2022-03-15] MEDS ORDERED: Ondansetron 4 MG/2 ML VIAL IVP PRN (05:11)
[2022-03-15] MEDS ORDERED: Naloxone 0.4 MG/ML INJ IVP PRN (05:11)
[2022-03-15] MEDS ORDERED: tiZANidine 4 MG TABLET PO PRN (05:19)
[2022-03-15 05:35] LABS: Estimated Average Glucose 114 mg/dl; Hemoglobin A1C 5.6 %
[2022-03-15 05:39] LABS: Alanine Aminotransferase 33 Units/L (7-52); Albumin 3.5 g/dL (3.5-5.7); Albumin/Globulin Ratio 1.5 (1.1-2.2); Alkaline Phosphatase 125 Units/L (34-104); Aspartate Amino Transferase 57 Units/L (13-39); Bilirubin,Direct 0.1 mg/dL (0.0-0.2); Bilirubin,Indirect 0.3 mg/dL (0.0-1.0); Bilirubin,Total 0.4 mg/dL (0.3-1.0); Globulin 2.3 g/dL (2.4-3.5); Total Protein 5.8 g/dL (6.4-8.9)
[2022-03-15 05:40] LABS: Troponin I < 0.03 ng/mL (< 0.04)
[2022-03-15 06:00] LABS: Influenza A PCR Negative (Negative); Influenza B PCR Negative (Negative); Resp. Syncytial Virus PCR Negative (Negative)
[2022-03-15 06:01] LABS: SARS-CoV-2 by PCR (In House) Negative (Negative)
[2022-03-15] MEDS: *HR* HYDROmorphone (PF) 1 MG/ML SYRINGE IVP PRN ×3 (06:40→23:57)
[2022-03-15] MEDS: Levalbuterol Neb 1.25 MG/3 ML IH SCH ×3 (06:46→21:30)
[2022-03-15 08:20] LABS: Amphetamine Screen,Urine Negative ng/mL (Cutoff=1000); Barbiturate Screen,Urine Negative ng/mL (Cutoff=200); Benzodiazepines Screen,Urine Negative ng/mL (Cutoff=200); Cannabinoid Screen,Urine Negative ng/mL (Cutoff = 50); Cocaine Screen,Urine Negative ng/mL (Cutoff= 300); Opiate Screen,Urine Positive ng/mL (Cutoff=300); Phencyclidine Screen,Urine Negative ng/mL (Cutoff=25)
[2022-03-15] MEDS ORDERED: Aspirin Enteric Coated 81 MG Tablet PO SCH (09:00)
[2022-03-15] MEDS ORDERED: lisinopriL 5 MG TABLET PO SCH (09:00)
[2022-03-15] MEDS ORDERED: Folic Acid 1 MG in 0.9 % Sodium Chloride 50 ML IVPB SCH (09:00)
[2022-03-15] MEDS ORDERED: Thiamine (B-1) 100 MG TABLET PO SCH (09:00)
[2022-03-15] MEDS ORDERED: Pantoprazole 40 MG VIAL IVP SCH (09:00)
[2022-03-15] MEDS ORDERED: *HR* HYDROmorphone (PF) 1 MG/ML SYRINGE IVP ONE (09:49)
[2022-03-15] MEDS ORDERED: Acetaminophen IV 1,000 MG/100 ML BAG IVPB ONE (18:32)
[2022-03-15] MEDS ORDERED: *HR* HYDROmorphone (PF) 1 MG/ML SYRINGE ONE (19:30)
[2022-03-15] MEDS ORDERED: traZODone 50 MG TABLET PO SCH (21:00)
[2022-03-16] MEDS: Levalbuterol Neb 1.25 MG/3 ML IH SCH ×4 (04:09→22:49)
[2022-03-16 05:44] LABS: Hematocrit 36.4 % (37.5-50.1); Mean Corpuscular HGB Conc 33.8 g/dL (31.6-35.5); Mean Corpuscular Hemoglobin 31.4 pg (28.0-33.3); Mean Corpuscular Volume 92.9 fL (83.0-100.0); Mean Platelet Volume 10.1 fL (9.4-12.4); Platelet Count 203 K/mcL (140-400); Red Blood Count 3.92 M/mcL (4.19-5.50); Red Cell Distribution Width 13.9 % (11.5-14.5); White Blood Count 5.7 K/mcL (4.3-11.1)
[2022-03-16 05:46] LABS: Hemoglobin 12.3 g/dL (12.9-16.9)
[2022-03-16 05:52] LABS: INR 1.1; Prothrombin Time 11.7 Seconds (9.4-12.1)
[2022-03-16 06:03] LABS: BUN/Creatinine Ratio 11 (6-26); Blood Urea Nitrogen 9 mg/dL (6-20); Calcium 7.8 mg/dL (8.6-10.3); Carbon Dioxide 26 mEq/L (23-29); Chloride 105 mEq/L (98-107); Chol/HDL Ratio 1.8 (0-4.9); Cholesterol 104 mg/dL (< 200); Glucose 112 mg/dL (70-105); HDL Cholesterol 58 mg/dL (40-59); LDL Cholesterol,Calculated 29 mg/dL (< 100); Magnesium 1.5 mg/dL (1.6-2.6); Osmolality,Calculated 285 (280-300); Potassium 3.4 mEq/L (3.5-5.1); Sodium 138 mEq/L (136-145); Triglycerides 86 mg/dL (< 150)
[2022-03-16] MEDS ORDERED: Famotidine 20 MG/2 ML VIAL IVP ONE (07:00)
[2022-03-16] MEDS ORDERED: Celecoxib 200 MG CAPSULE PO ONE (07:00)
[2022-03-16] MEDS ORDERED: Albuterol 2.5 MG/3 ML NEBULIZER IH PRN ×2 (07:10→09:57)
[2022-03-16] MEDS ORDERED: *HR* HYDROmorphone PF 0.5 MG/0.5 ML SYRINGE IVP PRN (07:10)
[2022-03-16] MEDS ORDERED: Ondansetron 4 MG/2 ML VIAL IVP PRN ×2 (07:10→09:57)
[2022-03-16] MEDS ORDERED: CeFAZolin Syr 2,000MG/20 ML 2,000 MG/20 ML SYRINGE IVPB ONE (07:15)
[2022-03-16] MEDS ORDERED: Ringers Solution, Lactated 1,000 ML IVC SCH ×2 (07:15→09:57)
[2022-03-16] MEDS ORDERED: *HR* Propofol 200 MG/20 ML VIAL IVP ONE (07:16)
[2022-03-16] MEDS ORDERED: *HR* Midazolam HCl 2 MG/2 ML VIAL ONE (07:16)
[2022-03-16] MEDS ORDERED: Lidocaine -MPF 2% 5 ML VIAL ONE (07:16)
[2022-03-16] MEDS ORDERED: Ropivacaine/PF 0.5% 30 ML VIAL ONE (07:19)
[2022-03-16] MEDS ORDERED: Ondansetron 4 MG/2 ML VIAL ONE (07:55)
[2022-03-16] MEDS: *HR* FentaNYL (PF) 100 MCG/2 ML VIAL IVP PRN ×2 (09:36→09:42)
[2022-03-16] MEDS ORDERED: *HR* OxyCODONE Immed Rel 5 MG TABLET PO PRN ×2 (09:51→09:57)
[2022-03-16] MEDS ORDERED: *HR* LORazepam 2 MG/ML VIAL IVP PRN ×2 (09:57)
[2022-03-16] MEDS ORDERED: tiZANidine 4 MG TABLET PO PRN (09:57)
[2022-03-16] MEDS ORDERED: Naloxone 0.4 MG/ML INJ IVP PRN (09:57)
[2022-03-16] MEDS: *HR* HYDROmorphone PF 0.5 MG/0.5 ML SYRINGE IVP PRN ×2 (09:59→10:05)
[2022-03-16] MEDS ORDERED: Pantoprazole 40 MG VIAL IVP SCH (11:00)
[2022-03-16] MEDS: Acetaminophen 325 MG TABLET PO SCH ×3 (13:43→18:48)
[2022-03-16] MEDS ORDERED: Nitroglycerin 0.4 MG TAB.SUBL SL PRN (13:58)
[2022-03-16] MEDS: CeFAZolin 2 GM/120 ML BAG IVPB SCH (17:44)
[2022-03-16] MEDS: Pregabalin 50 MG CAPSULE PO SCH (19:55)
[2022-03-16] MEDS: hydrOXYzine pamoate 25 MG CAPSULE PO SCH (19:57)
[2022-03-16] MEDS: *HR* OxyCODONE Immed Rel 5 MG TABLET PO PRN (19:57)
[2022-03-16] MEDS ORDERED: traZODone 50 MG TABLET PO SCH (21:00)
[2022-03-16] MEDS: Metoprolol XL (24 HR) Succ 50 MG TAB.ER.24H PO SCH (21:25)
[2022-03-17] MEDS: CeFAZolin 2 GM/120 ML BAG IVPB SCH (00:28)
[2022-03-17] MEDS: Acetaminophen 325 MG TABLET PO SCH ×5 (00:29→15:20)
[2022-03-17] MEDS: Levalbuterol Neb 1.25 MG/3 ML IH SCH ×3 (03:49→16:20)
[2022-03-17 05:50] LABS: Hematocrit 32.5 % (37.5-50.1); Hemoglobin 11.4 g/dL (12.9-16.9); Mean Corpuscular HGB Conc 35.1 g/dL (31.6-35.5); Mean Corpuscular Hemoglobin 32.3 pg (28.0-33.3); Mean Corpuscular Volume 92.1 fL (83.0-100.0); Mean Platelet Volume 10.7 fL (9.4-12.4); Platelet Count 174 K/mcL (140-400); Red Blood Count 3.53 M/mcL (4.19-5.50); Red Cell Distribution Width 13.7 % (11.5-14.5); White Blood Count 7.5 K/mcL (4.3-11.1)
[2022-03-17 06:13] LABS: BUN/Creatinine Ratio 10 (6-26); Blood Urea Nitrogen 9 mg/dL (6-20); Calcium 7.7 mg/dL (8.6-10.3); Carbon Dioxide 24 mEq/L (23-29); Chloride 104 mEq/L (98-107); Glucose 208 mg/dL (70-105); Osmolality,Calculated 287 (280-300); Potassium 3.6 mEq/L (3.5-5.1); Sodium 136 mEq/L (136-145)
[2022-03-17 06:14] LABS: Magnesium 1.5 mg/dL (1.6-2.6)
[2022-03-17] MEDS: Pregabalin 50 MG CAPSULE PO SCH (08:39)
[2022-03-17] MEDS: *HR* OxyCODONE Immed Rel 5 MG TABLET PO PRN ×2 (08:39→15:24)
[2022-03-17] MEDS: hydrOXYzine pamoate 25 MG CAPSULE PO SCH (08:41)
[2022-03-17] MEDS ORDERED: Thiamine (B-1) 100 MG TABLET PO SCH (09:00)
[2022-03-17] MEDS ORDERED: lisinopriL 5 MG TABLET PO SCH (09:00)
[2022-03-17] MEDS ORDERED: Folic Acid 1 MG in 0.9 % Sodium Chloride 50 ML IVPB SCH (09:00)
[2022-03-17] MEDS ORDERED: Aspirin Enteric Coated 325 MG Tablet PO SCH (09:29)
[2022-03-17] MEDS: Metoprolol XL (24 HR) Succ 50 MG TAB.ER.24H PO SCH (10:05)
[2022-03-17 10:29] VITALS: BP 107/70; PULSE 91; TEMP 98; O2SAT 98
== END 2022-03-17 16:45 | disposition home health service (06) | DRG 481 ==
LOC: 4WAOSI 23:43 → EMEROOARM 23:43 → SUATTDRO 03-15 16:48 → 4WAOSI 03-15 16:48
PROVIDERS: ADMIT Pharmacist; ATTEND Internal Medicine